=== PATIENT | female | born 1995 | race Two or more races ===

== ENCOUNTER 2020-07-03 13:43 | Emergency (ER) | payer MEDICAID, OTHER ==
[~2020-07-03] VITALS: Ht 165.1 cm; Wt 93.9 kg
[2020-07-03 14:01] VITALS: BP 124/71
[2020-07-03 15:04] LABS: Urine Bacteria NONE SEEN /hpf (None Seen); Urine Blood 3+ /uL (Negative); Urine Mucus FEW (None Seen); Urine Specific Gravity 1.028 (1.001-1.035); Urine WBC 9 /hpf (0 - 5)
== END 2020-07-03 16:02 | disposition home or self-care (01) ==
LOC: ER 13:43
DX: N94.6 Dysmenorrhea, unspecified (principal); Z32.02 Encounter for pregnancy test, result negative
CPT/HCPCS: 76830; 76856; 81001; 81025

== ENCOUNTER 2023-07-06 08:17 | Emergency (ER) | payer SELFPAY ==
[~2023-07-06] VITALS: Ht 167.6 cm; Wt 99.7 kg
[2023-07-06 08:53] LABS: Basophils # (auto) 0.1 10 ^3/uL (0-0.2); Basophils % (auto) 0.7 % (0.0-2.0); Eosinophils # (auto) 0.1 10 ^3/uL (0-0.8); Eosinophils % (auto) 1.1 % (0.0-7.0); Hemoglobin 10.6 g/dL (12.2-16.2); Lymphocytes # (auto) 1.3 10 ^3/uL (0.4-5.4); Mean Corpuscular Hemoglobin 21.1 pg (28.0-32.0); Mean Corpuscular Hgb Conc. 31.3 g/dL (32.0-36.0); Monocytes # (auto) 0.4 10 ^3/uL (0-1.3); Red Blood Cells 5.04 10^6/uL (4.0-5.20); White Blood Cell 7.6 10^3/uL (4.4-10.8)
[2023-07-06 08:55] LABS: Hematocrit 33.9 % (36.0-46.0); Lymphocytes % (auto) 17.7 % (10.0-50.0); Mean Corpuscular Volume 67.2 fL (80.0-100.0); Monocytes % (auto) 5.4 % (0.0-12.0); Neutrophils # (auto) 5.7 10 ^3/uL (1.6-8.6); Neutrophils % (auto) 75.1 % (37.0-80.0); Red Cell Distribution Width 17.4 % (11.8-14.3)
[2023-07-06 09:05] LABS: Urine Bacteria None Seen /hpf (None Seen)
[2023-07-06 09:09] LABS: Alanine Aminotransferase 117 U/L (7-40); Albumin 4.2 g/dL (3.2-4.8); Alkaline Phosphatase 96 U/L (46-116); Anion Gap 6 (5-15); Aspartate Aminotransferase 55 U/L (13-40); BUN/Creatinine Ratio 8.5 (10.0-20.0); Bilirubin, Total 0.6 mg/dL (0.2-1.0); Blood Urea Nitrogen 6 mg/dL (9-23); Calcium 9.2 mg/dL (8.5-10.1); Carbon Dioxide 25 mmol/L (20-30); Chloride 106 mmol/L (98-107); Glucose 130 mg/dL (74-106); Potassium 3.8 mmol/L (3.5-5.1); Sodium 137 mmol/L (136-145); Total Protein 7.5 g/dL (5.7-8.2)
[2023-07-06 09:16] LABS: Urine Blood 3+ /uL (Negative); Urine Clarity Ex.Turbid (Clear); Urine Color Light-Red (Yellow); Urine Mucus FEW (None Seen); Urine Protein, UAD 1+ (Negative); Urine Specific Gravity 1.019 (1.001-1.035); Urine Urobilinogen Normal (Negative); Urine WBC 110 /hpf (0 - 5)
[2023-07-06] MEDS: fentaNYL CITRATE 100 MCG/2 ML VL IV ONE (12:00)
[2023-07-06] MEDS: HYDROcodone-ACET 5/325MG TAB PO ONE (15:16)
[2023-07-06] MEDS: SODIUM CHLORIDE 0.9% 1,000 ML IV ONE (18:14)
[2023-07-06] MEDS ORDERED: CIPR-173 PO (18:25)
[2023-07-06] MEDS: KETOROLAC TROMETH 30 MG/ML 1ML VIAL IV ONE (20:23)
[2023-07-06 20:24] VITALS: BP 127/83; PULSE 100; RESP 18; TEMP 98.6; O2SAT 99
== END 2023-07-06 20:42 | disposition home or self-care (01) ==
LOC: ER 08:17
DX: R10.2 Pelvic and perineal pain (principal); D64.9 Anemia, unspecified; Z79.2 Long term (current) use of antibiotics
CPT/HCPCS: 36415; 74176; 76830; 76856; 80053; 81001; 84702; 85025; 96361; 96374; 99285; J1885; J7030